=== PATIENT | female | born 2000 ===

== ENCOUNTER 2023-03-05 15:44 | Outpatient (REF) | payer BC, SELFPAY ==
[2023-03-06 14:17] LABS: HSV 1 DNA Result Positive (Negative); HSV 2 DNA Result Negative (Negative)
== END 2023-03-05 15:45 | disposition home or self-care (01) ==
LOC: NCHCN 15:44
PROVIDERS: Visit Provider Physician Assistant
DX: J02.9 Acute pharyngitis, unspecified (principal); L98.8 Other specified disorders of the skin and subcutaneous tissue
CPT/HCPCS: 87529; 87070